=== PATIENT | female | born 2000 | race Caucasian/White ===

== ENCOUNTER 2024-03-27 20:50 | Outpatient (CLI) | payer MEDICAID, SELFPAY ==
[2024-03-27 21:21] VITALS: PULSE 92; O2SAT 99
[2024-03-27 21:23] VITALS: RESP 20; TEMP 36.9
[2024-03-27 21:25] VITALS: BP 125/73; PULSE 85
[2024-03-27 21:38] VITALS: BMI 33.8
--- NOTE | 2024-03-27 23:53 | OB.TRI.NOTE ---
HPI - General HPI Narrative NURIS THOMAS, is a 23 y/o @ 25 weeks 3 days who presents to L&D with decreased FM. She was told by her primary ob, Dr. Finch to come to our hospital for testing. PFSH PFSH Home Medications ?Medication ?Instructions ?Recorded ?Last Taken ?Type cholecalciferol (vitamin D3) .ROUTE 03/27/24 Unknown History vit no.95-ferrous 1 tab PO DAILY 03/27/24 Unknown History fumarate 28 mg-folic acid 800 mcg tablet () Allergy/AdvReac Type Severity Reaction Status Date / Time Environmental Allergies: Allergy Mild Other Verified 03/27/24 21:40 Uncoded (dust) ROS Constitutional Constitutional: Reports systems reviewed and no addt'l complaints, except as documented Gastrointestinal Gastrointestinal: Denies bloating, constipation, cramping, diarrhea, nausea or vomiting Genitourinary Genitourinary: Reports other Details: Denies vaginal odor, vaginal bleeding, or vaginal discharge ; Denies difficulty urinating or flank pain NST FHR Rate Baby A Baseline: 140 Variability:: Moderate Accelerations:: 10 x 10 Decelerations:: None NST Reactive:: Yes FHR Category:: Category I Assessment & Plan (1) Decreased movement: PLAN: NST reactive for her gestational age. ok to dc to home.
== END 2024-03-27 22:00 | disposition home or self-care (01) ==
LOC: WPOUT 21:08 → WP 21:09
PROVIDERS: Referring Provider Obstetrics & Gynecology; Visit Provider Obstetrics & Gynecology
DX: O36.8120 Decreased fetal movements, second trimester, not applicable or unspecified (principal); Z3A.25 25 weeks gestation of pregnancy
CPT/HCPCS: 59050; 99221; G0378